=== PATIENT | male | born 1970 | race Caucasian/White ===

== ENCOUNTER 2017-01-29 21:38 | Emergency (ER) | payer SELFPAY ==
[2017-01-29] MEDS ORDERED: FOLIC ACID 1 MG TAB PO ONE (22:01)
[2017-01-29] MEDS ORDERED: NS 1,000 ML IV ONE ×2 (22:01→23:51)
[2017-01-29] MEDS ORDERED: THIAMINE HCL 500 MG in NS 100 ML IV ONE (22:01)
--- NOTE | 2017-01-29 22:28 | EDPHY ---
H & P Stated Complaint: ETOH - "drank a lot of vodka" at [facility] Source: Patient Exam Limitations: No limitations - Personal History Current Tetanus/Diphtheria Vaccine: Unsure Current Tetanus Diphtheria and Acellular Pertussis (TDAP): Unsure - Medical/Surgical History Other PMH: unobtainable - Social History Smoking Status: Current every day smoker HPI/ROS: CHIEF COMPLAINT: [facility] hold, acute alcohol intoxication HISTORY OF PRESENT ILLNESS: Patient arrives by EMS due to [facility] hold from acute alcohol intoxication. Contacted by bystanders due to alcohol intoxication. [place] [employer] activated. They placed a hold on him due to intoxication the EMS was activated. Patient denies any complaints of any kind. He admits to drinking heavy amounts of alcohol, vodka. He will not provide any other descriptors. He denies any headache. He has no chest pain. He has no complaints other than wanting to be left alone. No other history obtainable as he is a poor historian. REVIEW OF SYSTEMS: Ten systems reviewed and are negative unless otherwise noted in the HPI PAST MEDICAL HISTORY: Unable to obtain as he refuses to provide the information SOCIAL HISTORY: Alcohol intake. Will not provide any further social history FAMILY HISTORY: Unable to obtain EXAMINATION General Appearance: Alert, no distress Head: normocephalic, atraumatic. no outward signs of trauma Eyes: Pupils equal and round, no conjunctival pallor or injection. EOMs intact ENT, Mouth: Mucous membranes moist Neck: Normal inspection, supple, non-tender Respiratory: mild rhonchi. No retractions or distress. Cardiovascular: Regular rate and rhythm. no murmur Gastrointestinal: Abdomen is soft and nontender Back: non-tender, no bony abnormalities Neurological: Alert to person and place. Will not answer my question regarding time. Strength is symmetric in both arms. Skin: Warm and dry, no rash. No petechiae or purpura Extremities: Nontender, no pedal edema Psychiatric: Mood and affect normal DIFFERENTIAL DIAGNOSES: Including but not limited to acute alcohol intoxication, chronic alcohol use, alcohol abuse, alcoholism, dehydration MDM: 10:00 p.m. Acute alcohol intoxication. The patient will not provide any complaints. He does appear to be intoxicated. He is on a hold. We will hydrate him and re- evaluate. Plan for transfer to the [facility] once he is ambulatory. His vital signs are stable. He is mildly tachycardic. He is not tachypneic. He is afebrile. No tremor or evidence of delirium tremens. 11:28 p.m. I have re-evaluated the patient. He continues to pull his pulse oximeter and oxygen cannula off. When he sleeps is oxygen does drop into the 86-88% range. When he wakes up it is well above 90%. Mildly tachycardic. Provide a 2nd L of IV fluid continue to monitor his pulse oximetry. 11:45 p.m. Attempted a breathalyzer test with the patient was not cooperating. There was a partial/passive test performed that revealed a blood alcohol of 348. Thus the patient will likely be in the emergency department all night until which time he is able to ambulate without difficulty. Will monitor him with pulse oximetry. 1:00 a.m. Patient remains somnolent but in no acute distress. At this time I will transition care of the patient over to Dr. Soliz. Please see his note for final disposition. SUPERVISION: Patient was evaluated in conjunction with the supervising physician. Please see their note for details. (Gama Mccann) 0325AM: Patient not up ambulatory no ataxia. Stable gait., cooperative. Agreeable discharge would like to go to the [facility]. (James Soliz) Constitutional: Initial Vital Signs Temperature (C) 36.3 C 01/29/17 21:46 Heart Rate 107 H 01/29/17 21:46 Respiratory Rate 20 01/29/17 21:46 Blood Pressure 129/93 H 01/29/17 21:46 O2 Sat (%) 91 L 01/29/17 21:46 O2 Delivery Mode B[place] O2 (L/minute) 5 Allergies/Adverse Reactions: Unable to Assess Allergy (Unverified 03/17/11 03:38) Home Medications: Medication Instructions Recorded Unable To Obtain 0 03/17/11 Departure - Departure Disposition: Home, Routine, Self-Care Clinical Impression: Acute alcohol intoxication Qualifiers: Complication of substance-induced condition: uncomplicated Qualified Code(s): F10.920 - Alcohol use, unspecified with intoxication, uncomplicated Condition: Good Instructions: Alcohol Intoxication (ED) Referrals: Patient,NotPresent [Primary Care Provider] - As per Instructions Mallory Hemphill MD [Medical Doctor] - As per Instructions [facility],. [Clinic] - As per Instructions
[2017-01-30] MEDS ORDERED: FOLIC ACID 1 MG TAB ONE (03:15)
[2017-01-30 03:39] VITALS: BP 117/88; PULSE 96; RESP 16; TEMP 97.5; O2SAT 95
== END 2017-01-30 03:50 | disposition home or self-care (01) ==
LOC: EDUNIT#
DX: F10.920 Alcohol use, unspecified with intoxication, uncomplicated (principal); F17.200 Nicotine dependence, unspecified, uncomplicated
CPT/HCPCS: 96365; J3411

== ENCOUNTER 2017-05-15 15:40 | Emergency (ER) | payer MEDICAID ==
--- NOTE | 2017-05-15 15:42 | EDPHY ---
H & P Time Seen by Provider: 05/15/17 15:41 HPI/ROS: CHIEF COMPLAINT: Altered mental status HISTORY OF PRESENT ILLNESS: Patient arrives wearing a name tag with his 1st name on it, he was at a alevism dinner for Thanksgiving and was brought by police and paramedics after acting altered. Pre-hospital glucose was 100. Per EMS he smelled like mouthwash, patient admits to alcohol ingestion today. REVIEW OF SYSTEMS: Denies any medical complaints. No chest pain or shortness of breath. No suicidal ideation or overdose. No history of trauma. A comprehensive 10 point review of systems is otherwise negative aside from elements mentioned in the history of present illness. PAST MEDICAL HISTORY: Seen 01/29/2017 in our ED for alcohol intoxication. Social history: Admits to alcohol General Appearance: Alert, slurred speech, does follow commands. Eyes: No scleral icterus. ENT, Mouth: Normal mucous membranes. Respiratory: Normal respiratory effort, breath sounds equal, lungs are clear to auscultation. Cardiovascular: Regular rate and rhythm. Gastrointestinal: Abdomen is soft and non tender. Neurological: Alert, slurred speech, follows commands. A bit tangential. Face symmetric, normal movement and sensation in all extremities. Skin: Warm and dry, no rashes. Musculoskeletal: No peripheral edema and no joint swelling. Psychiatric: Denies SI or overdose. Emergency Department course/MDM: Normal pre-hospital glucose. Presentation consistent with history. Plan for serial examinations 1809: Sleeping quietly, easily awakened, more alert and speech less slurred. 1930: Ambulatory to the bathroom, no medical complaints, speech is clear, clinically sober to be discharged to detox. Smoking Status: Current every day smoker Constitutional: Initial Vital Signs Temperature (C) 36.7 C 05/15/17 15:40 Heart Rate 111 H 05/15/17 15:40 Respiratory Rate 16 05/15/17 15:40 Blood Pressure 147/75 H 05/15/17 15:40 O2 Sat (%) 93 05/15/17 15:40 O2 Delivery Mode Room Air Allergies/Adverse Reactions: Unable to Assess Allergy (Unverified 03/17/11 03:38) Home Medications: Medication Instructions Recorded Unable To Obtain 0 03/17/11 Medical Decision Making Differential Diagnosis: Differential diagnosis considered for altered mental status including but not limited to hypoglycemia, infectious process, electrolyte abnormality, head injury and intoxicants. Departure - Departure Disposition: Home, Routine, Self-Care Clinical Impression: Alcoholic intoxication Qualifiers: Complication of substance-induced condition: uncomplicated Qualified Code(s): F10.920 - Alcohol use, unspecified with intoxication, uncomplicated Condition: Good Instructions: Alcohol Intoxication (ED) Referrals: [facility],. [Clinic] - As per Instructions
[2017-05-15 16:09] VITALS: TEMP 98.1
[2017-05-15] MEDS ORDERED: CHLORDIAZEPOXIDE 25MG PREPK#6 BTL TAKEHOME ONE (19:39)
[2017-05-15 19:40] VITALS: BP 127/71; PULSE 80; RESP 14; O2SAT 95
== END 2017-05-15 19:49 | disposition home or self-care (01) ==
LOC: EDUNIT#
DX: F10.920 Alcohol use, unspecified with intoxication, uncomplicated (principal); F17.200 Nicotine dependence, unspecified, uncomplicated

== ENCOUNTER 2017-05-31 18:21 | Emergency (ER) | payer MEDICAID ==
--- NOTE | 2017-05-31 18:29 | EDPHY ---
H & P - Medical/Surgical History Hx Asthma: No Hx Chronic Respiratory Disease: No Hx Diabetes: No Hx Cardiac Disease: No Hx Renal Disease: No Hx Cirrhosis: No Hx Alcoholism: Yes Hx HIV/AIDS: No Hx Splenectomy or Spleen Trauma: No Other PMH: unobtainable - Social History Smoking Status: Current every day smoker HPI/ROS: CHIEF COMPLAINT: Altered mental status, Agitation at the movies possible alcohol intoxication HISTORY OF PRESENT ILLNESS: 47-year-old male history of heavy alcohol use, homelessness, arrives by ambulance after he was at the movie theater watching Thor and was reported by moviegoers that during violent or dramatic movie scenes the patient would start punching the chair and screaming. He has no complaints of pain or discomfort. Last tetanus is unknown. He denies suicidal or homicidal ideation. PRIMARY CARE PROVIDER: REVIEW OF SYSTEMS: A ten point review of systems was performed and is negative with the exception of the items mentioned in the HPI PAST MEDICAL & SURGICAL HISTORY: History of heavy alcohol use SOCIAL HISTORY: Admits to positive alcohol use PHYSICAL EXAM (Prior to examination, patient consented to physical exam, hands were washed and my usual and customary physical exam procedures followed) 1) GENERAL: Well-developed, well-nourished, alert and oriented. Appears to be in no acute distress. 2) HEAD: Normocephalic, atraumatic 3) HEENT: Pupils equal, round, reactive to light bilaterally. Sclera anicteric. Nasopharynx, oropharynx, clear, no lesions. Ears bilaterally with normal tympanic membranes. 4) NECK: Full range of motion, no meningeal signs. 5) LUNGS: Clear auscultation bilaterally, no wheezes, no rhonchi, no retractions. 6) HEART: Regular rate and rhythm, no murmur, no heave, no gallop. 7) ABDOMEN: No guarding, no rebound, no focal tenderness, negative McBurney's, negative Lang's, negative Rovsing's, negative peritoneal sign, 8) MUSCULOSKELETAL: Moving all extremities, no focal areas of tenderness, no obvious trauma. No peripheral edema or discoloration. 9) BACK: No CVA tenderness, no midline vertebral tenderness, no fluctuance, no step-off, no obvious trauma, no visual or palpable abnormality. 10) SKIN: No rash, no petechiae. 11) Psychiatric: Patient is oriented X 3, there is no agitation. DIFFERENTIAL DIAGNOSIS: In no particular include but limited to hypoglycemia, polysubstance abuse, acute alcohol use (Patel Durand) Constitutional: Initial Vital Signs Temperature (C) 36.4 C 05/31/17 18:32 Heart Rate 101 H 05/31/17 18:32 Respiratory Rate 15 05/31/17 18:32 Blood Pressure 150/106 H 05/31/17 18:32 O2 Sat (%) 97 05/31/17 18:32 O2 Delivery Mode Room Air Allergies/Adverse Reactions: Unable to Assess Allergy (Verified 05/31/17 18:31) Home Medications: Medication Instructions Recorded Unable To Obtain 0 03/17/11 Medical Decision Making ED Course/Re-evaluation: 6:30 p.m.: Blood alcohol 376, glucose 123. Patient will be observed for a period of time prior to to [facility] He is noted to have abrasion to bilateral hands with no underlying osseous discomfort, no malrotation or shortening normal cascading digits. This time he is unable to ambulate without significant assistance. Will observe for period of time. 8:02 p.m.: Re-evaluation, somnolent 9:37 p.m.: Re-evaluation, sleeping, easily woken, he is answering questions more clearly, progressively more coherent while in the emergency department. I re-examined him at this time specifically examined as bilateral hands which have dried blood however no evidence of infection, no evidence of septic arthritis, no underlying osseous discomfort, no malrotation, no shortening. I do not think that imaging of the hands currently indicated. He would like to go to the [facility]. Doubt delirium tremens. Usual and customary discharge precautions and instructions provided. Care of patient under supervision of secondary supervising physician Dr Martinez . (Patel Durand Sandhya) I did not see this patient while he was in the emergency department. However his care was discussed with the PA while the patient was in the department. I agree with treatment plan and management. I am the secondary supervising physician (Pj Martinez) - Data Points Medications Given: Discontinued Medications Chlordiazepoxide (Librium 25 Mg Prepack#6) 1 btl TAKEHOME EDNOW ONE Stop: 05/31/17 21:38 Last Admin: 05/31/17 21:45 Dose: 1 btl Diphtheria/Tetanus/Acell Pertussis (Boostrix) 0.5 ml IM .ONCE ONE Stop: 05/31/17 19:30 Last Admin: 05/31/17 21:00 Dose: 0.5 ml Departure - Departure Disposition: Home, Routine, Self-Care Clinical Impression: Alcoholic intoxication Condition: Good Instructions: Chlordiazepoxide (By mouth), Alcohol Intoxication (ED) Referrals: [facility] 24 Hours [Outside] - As per Instructions
[2017-05-31 18:34] VITALS: TEMP 97.5
[2017-05-31] MEDS ORDERED: TDAP ADULT 0.5 ML INJ (BOOSTRIX) IM ONE (19:29)
[2017-05-31 21:04] VITALS: RESP 16
[2017-05-31] MEDS ORDERED: CHLORDIAZEPOXIDE 25MG PREPK#6 BTL TAKEHOME ONE (21:37)
[2017-05-31 21:51] VITALS: BP 124/86; PULSE 103; O2SAT 98
== END 2017-05-31 21:51 | disposition home or self-care (01) ==
LOC: EDUNIT#
DX: F10.129 Alcohol abuse with intoxication, unspecified (principal); F17.200 Nicotine dependence, unspecified, uncomplicated; Z23 Encounter for immunization

== ENCOUNTER 2017-07-29 13:39 | Emergency (ER) | payer MEDICAID ==
--- NOTE | 2017-07-29 13:47 | EDPHY ---
H & P Time Seen by Provider: 07/29/17 13:46 HPI/ROS: HPI: This is a 47-year-old male who presents with Chief Complaint: Alcohol intoxication Location: body Quality: Alcohol intoxication Duration: Today Signs and Symptoms: no fever, no nausea, no vomiting, no hematemesis, no blood in stool, no abdominal bloating, no diarrhea, no back pain, no urinary symptoms , no testicular/groin pain, no indigestion, no chest pain, no shortness of breath Timing: Acute on chronic Severity: Moderate Context: Patient presents via EMS with complaints of alcohol intoxication. Patient was found outside disturbing the peace. Patient reports that he drank a lot of alcohol today but will not quantify how much. Denies any other complaints. Reports that he drinks alcohol almost every day. Denies suicidal ideation/homicidal ideation/hallucinations. No history of alcohol withdrawal seizures. Patient refuses to give any more information. He is a poor historian. Modifying Factors: None Comment: ROS: Limited due to intoxication MEDICAL/SURGICAL/SOCIAL HISTORY: Medical history: Alcohol abuse Surgical history: Denies Social history: Homeless CONSTITUTIONAL: Clearly intoxicated, sleeping soundly, awakens to painful stimuli but quickly falls asleep, awake and alert, no obvious distress HEENT: Atraumatic and normocephalic, PERRL, EOMI. Tympanic membranes clear. Oropharynx clear, no exudate and moist pink mucosa. Airway patent. No lymphadenopathy. No meningismus. Cardiovascular: Normal S1/S2, regular rate, regular rhythm, without murmur rub or gallop. PULMONARY/CHEST: Symmetrical and nontender. Clear to auscultation bilaterally. Good air movement. No accessory muscle usage. ABDOMEN: Soft, nondistended, nontender, no rebound, no guarding, no peritoneal signs, no masses or organomegaly. No CVAT. EXTREMITIES: 2/2 pulses, strength 5/5, no deformities, no clubbing, no cyanosis or edema. Passive movement of all 4 extremities. NEUROLOGICAL: no focal neuro deficits. Intoxicated. Speech mumbled. GCS 13. SKIN: Warm and dry, no erythema. no rash. Good capillary refill. Source: Patient, EMS, Old records Exam Limitations: No limitations - Medical/Surgical History Hx Asthma: No Hx Chronic Respiratory Disease: No Hx Diabetes: No Hx Cardiac Disease: No Hx Renal Disease: No Hx Cirrhosis: No Hx Alcoholism: Yes Hx HIV/AIDS: No Hx Splenectomy or Spleen Trauma: No Other PMH: unobtainable - Social History Smoking Status: Current every day smoker Constitutional: Initial Vital Signs Temperature (C) 36.6 C 07/29/17 14:00 Heart Rate 84 07/29/17 14:00 Respiratory Rate 18 07/29/17 14:00 Blood Pressure 134/84 H 07/29/17 14:00 O2 Sat (%) 92 07/29/17 14:00 O2 Delivery Mode Room Air Allergies/Adverse Reactions: No Known Allergies Allergy (Unverified 07/29/17 13:59) Home Medications: Medication Instructions Recorded NK [No Known Home Meds] 07/29/17 Medical Decision Making ED Course/Re-evaluation: 1400: FSBS 95. Patient is too intoxicated to obtain Breathalyzer. Maintaining airway. Will allow patient to sleep and become more sober. Do not believe that IV or laboratory studies are indicated at this time. 1625: Reassessed patient; sleeping soundly. Will wake up with painful stimuli. He is unsure of how he arrived in the emergency room. Admits to drinking alcohol today but unsure how much. Currently has no complaints. Does not meet M1 or Detainer criteria 1730: Patient walked out of his room without ataxia or assistance. Discharge to [facility] with Librium prepack. This patient was seen under the supervision of my secondary supervising physician. I evaluated care for this patient independently. Differential Diagnosis: Altered mental status including but not limited to hypoglycemia, infectious process, electrolyte abnormality, head injury and intoxicants. - Data Points Laboratory Results: 07/29/17 13:57 POC Glucose 95 mg/dL mg/dL (70-100) Point of Care Test Results: 07/29/17 13:57 POC Glucose 95 Departure - Departure Disposition: Home, Routine, Self-Care Clinical Impression: Alcohol intoxication Qualifiers: Complication of substance-induced condition: uncomplicated Qualified Code(s): F10.920 - Alcohol use, unspecified with intoxication, uncomplicated Condition: Fair Instructions: Abuse of Alcohol (ED) Additional Instructions: Please stop drinking alcohol excessively. Referrals: [facility] Detox 24 Hours [Outside] - As per Instructions
[2017-07-29 14:03] VITALS: BP 134/84; PULSE 84; RESP 18; TEMP 97.9; O2SAT 92
[2017-07-29] MEDS ORDERED: CHLORDIAZEPOXIDE 25MG PREPK#6 BTL TAKEHOME ONE (17:29)
== END 2017-07-29 17:46 | disposition home or self-care (01) ==
LOC: EDUNIT#
DX: F10.920 Alcohol use, unspecified with intoxication, uncomplicated (principal); F17.200 Nicotine dependence, unspecified, uncomplicated

== ENCOUNTER 2017-08-16 18:34 | Emergency (ER) | payer MEDICAID ==
--- NOTE | 2017-08-16 18:39 | EDPHY ---
H & P Smoking Status: Current every day smoker Time Seen by Provider: 08/16/17 18:35 HPI/ROS: CHIEF COMPLAINT: Altered mental status HISTORY OF PRESENT ILLNESS: History primarily from EMS, they were called the library as the patient was acting abnormally and then briefly was unresponsive. No seizure activity. Patient is having trouble answering questions. Further history and review of systems unable as the patient his altered. PAST MEDICAL HISTORY: From previous visits, alcohol intoxication Social history: Admits to alcohol General Appearance: Alert but slurred speech, intermittently cooperative Eyes: No scleral icterus. ENT, Mouth: Normal mucous membranes. No tongue laceration or abrasion. Respiratory: Normal respiratory effort, breath sounds equal, lungs are clear to auscultation. Cardiovascular: Regular rate and rhythm. Gastrointestinal: Abdomen is soft and non tender. Neurological: Moves all 4 extremities and intermittently follows commands. Skin: Warm and dry, no rashes. No external evidence of head trauma. Musculoskeletal: No spinal or extremity deformity or tenderness. Psychiatric: Unable because altered. Emergency Department course/MDM: CBC chemistry and ethanol, serial exams. 1950: ethanol 495; plan for serial exam, eventually to detox. 2032: Signed out to Kaveh (Ilir Quijano) Constitutional: Initial Vital Signs Temperature (C) 36.8 C 08/16/17 18:39 Heart Rate 106 H 08/16/17 18:39 Respiratory Rate 16 08/16/17 18:39 Blood Pressure 131/90 H 08/16/17 18:39 O2 Sat (%) 99 08/16/17 18:39 O2 Delivery Mode Room Air O2 (L/minute) 2 Allergies/Adverse Reactions: No Known Allergies Allergy (Unverified 07/29/17 13:59) Home Medications: Medication Instructions Recorded NK [No Known Home Meds] 07/29/17 Medical Decision Making Differential Diagnosis: Differential diagnosis considered for altered mental status including but not limited to hypoglycemia, infectious process, electrolyte abnormality, head injury and intoxicants. (Ilir Quijano) Patient sobered and felt well. He was able to walk within the emergency department and will be discharged home. (Laurence Linn) - Data Points Laboratory Results: Laboratory Results 08/16/17 18:21 08/16/17 18:21 08/16/17 18:21 Sodium 154 mEq/L H mEq/L (135-145) Potassium 4.5 mEq/L mEq/L (3.5-5.2) Chloride 105 mEq/L mEq/L (97-110) Carbon Dioxide 29 mEq/l mEq/l (22-31) Anion Gap 20 mEq/L H mEq/L (8-16) BUN 10 mg/dL mg/dL (7-23) Creatinine 1.0 mg/dL mg/dL (0.7-1.3) Estimated GFR > 60 Glucose 109 mg/dL H mg/dL (70-100) Calcium 10.4 mg/dL mg/dL (8.5-10.4) Ethyl Alcohol 495 mg/dL H* mg/dL (0-10) Departure - Departure Disposition: Home, Routine, Self-Care Clinical Impression: Alcoholic intoxication Qualifiers: Complication of substance-induced condition: uncomplicated Qualified Code(s): F10.920 - Alcohol use, unspecified with intoxication, uncomplicated Condition: Good Instructions: Alcohol Intoxication (ED) Referrals: [facility],. [Clinic] - As per Instructions
[2017-08-16 18:53] LABS: PLATELET COUNT 547 10^3/uL (150-400)
[2017-08-17 03:36] VITALS: BP 112/80; PULSE 80; RESP 16; TEMP 98.1; O2SAT 93
== END 2017-08-17 03:37 | disposition home or self-care (01) ==
LOC: EDUNIT#
DX: F10.920 Alcohol use, unspecified with intoxication, uncomplicated (principal); F17.200 Nicotine dependence, unspecified, uncomplicated
CPT/HCPCS: G0480

== ENCOUNTER 2018-08-08 16:40 | Emergency (ER) | payer MEDICAID ==
--- NOTE | 2018-08-08 16:43 | EDPHY ---
HPI/HX/ROS/PE/MDM Narrative: CHIEF COMPLAINT: Fall, AMS HPI: The patient is a 48 y/o male with a history of prior ED visits for alcohol intoxication who arrives via EMS after he fell from a chair at [facility]. Per EMS , bystanders denied seizure activity or loss of consciousness. He has mostly been following commands for them and has a normal prehospital BGL. He admits to alcohol use today, but generally has not been able to answer most questions here and further history is not obtainable from him at this time. REVIEW OF SYSTEMS: Unobtainable due to AMS. PMH: Alcohol use leading to ED visits SOCIAL HISTORY: Alcohol use. Smoker. Prior medical records reviewed including ED visit 08/16/17 for alcohol intoxication. PHYSICAL EXAM: General:Patient is alert, in no acute distress. Smells of alcohol. ENT:Eyes are normal to inspection. ENT inspection normal. Neck: Normal inspection. Full range of motion. Respiratory:No respiratory distress. Breath sounds normal bilaterally. Cardiovascular: Tachycardic regular rate and rhythm. Strong peripheral pulses. Normal cap refill. Abdomen:The abdomen is nontender to palpation. There are no peritoneal signs. Back: Normal to inspection. No tenderness to palpation. Skin: Normal color. No rash. Warm and dry. Extremities: Normal appearance. Full range of motion. Neuro: Oriented x2. Moving all extremities. Face symmetric. Following some commands. ED Course: This is a 48 y/o male with a history of prior ED visits for alcohol intoxication who presents with altered mentation after a fall off a chair. He smells of alcohol and has difficulty answering questions on exam. No focal neuro deficits or obvious trauma on exam. Suspect alcohol intoxication. Plan for IV, labs, and serial reassessment. EtOH 399. Labs otherwise unremarkable. 2049: Patient is now walking through the department without issue. He will be discharged to the [facility] in stable condition for detox. Standard care and follow up instructions provided. Return precautions discussed. - Data Points Laboratory Results: Laboratory Results 08/08/18 17:00 08/08/18 17:00 08/08/18 08/08/18 17: 17: WBC 6.65 10^3/uL 10^3/uL (3.80-9.50) RBC 4.39 10^6/uL L 10^6/uL (4.40-6.38) Hgb 14.4 g/dL g/dL (13.7-17.5) Hct 40.6 % % (40.0-51.0) MCV 92.5 fL fL (81.5-99.8) MCH 32.8 pg pg (27.9-34.1) MCHC 35.5 g/dL g/dL (32.4-36.7) RDW 11.3 % L % (11.5-15.2) Plt Count 328 10^3/uL 10^3/uL (150-400) MPV 9.1 fL fL (8.7-11.7) Neut % (Auto) 48.3 % % (39.3-74.2) Lymph % (Auto) 42.9 % % (15.0-45.0) [place] % (Auto) 6.6 % % (4.5-13.0) Eos % (Auto) 0.9 % % (0.6-7.6) Baso % (Auto) 1.1 % % (0.3-1.7) Nucleat RBC Rel Count 0.0 % % (0.0-0.2) Absolute Neuts (auto) 3.22 10^3/uL 10^3/uL (1.70-6.50) Absolute Lymphs (auto) 2.85 10^3/uL 10^3/uL (1.00-3.00) Absolute Monos (auto) 0.44 10^3/uL 10^3/uL (0.30-0.80) Absolute Eos (auto) 0.06 10^3/uL 10^3/uL (0.03-0.40) Absolute Basos (auto) 0.07 10^3/uL 10^3/uL (0.02-0.10) Absolute Nucleated RBC 0.00 10^3/uL 10^3/uL (0-0.01) Immature Gran % 0.2 % % (0.0-1.1) Immature Gran # 0.01 10^3/uL 10^3/uL (0.00-0.10) Sodium 146 mEq/L H mEq/L (135-145) Potassium 4.3 mEq/L mEq/L (3.5-5.2) Chloride 107 mEq/L mEq/L (97-110) Carbon Dioxide 25 mEq/l mEq/l (22-31) Anion Gap 14 mEq/L mEq/L (6-14) BUN 15 mg/dL mg/dL (7-23) Creatinine 1.1 mg/dL mg/dL (0.7-1.3) Estimated GFR > 60 Glucose 110 mg/dL H mg/dL (70-100) Calcium 9.5 mg/dL mg/dL (8.5-10.4) Ethyl Alcohol 399 mg/dL H mg/dL (0-10) General Time Seen by Provider: 08/08/18 16:41 Initial Vital Signs: Initial Vital Signs Temperature (C) 37.1 C 08/08/18 16:45 Heart Rate 114 H 08/08/18 16:45 Respiratory Rate 18 08/08/18 16:45 Blood Pressure 106/83 H 08/08/18 16:45 O2 Sat (%) 92 08/08/18 16:45 O2 Delivery Mode Room Air O2 (L/minute) 2 Allergies/Adverse Reactions: No Known Allergies Allergy (Unverified 07/29/17 13:59) Home Medications: Medication Instructions Recorded NK [No Known Home Meds] 07/29/17 Departure - Departure Disposition: Home, Routine, Self-Care Clinical Impression: Alcoholic intoxication Qualifiers: Complication of substance-induced condition: uncomplicated Qualified Code(s): F10.920 - Alcohol use, unspecified with intoxication, uncomplicated Condition: Good Instructions: Abuse of Alcohol (ED) Additional Instructions: Go directly to the [facility] for detox. Follow up with your primary care provider this week. Return for worsening of condition. Referrals: [facility] Detox 24 Hours [Outside] - As per Instructions Report Scribed for: Nasir Siddiqui Report Scribed by: Mary Esposito Date of Report: 08/08/18 Time of Report: 17:20 Physician Review and Approval Statement: Portions of this note were transcribed by an ED scribe. I personally performed the history, physical exam, and medical decision making; and confirm the accuracy of the information in the transcribed note.
[2018-08-08 17:08] LABS: PLATELET COUNT 328 10^3/uL (150-400)
[2018-08-08] MEDS ORDERED: CHLORDIAZEPOXIDE 25MG PREPK#6 BTL TAKEHOME ONE (21:01)
[2018-08-08 21:19] VITALS: BP 134/80
== END 2018-08-08 21:17 | disposition home or self-care (01) ==
LOC: EDUNIT#
DX: F10.920 Alcohol use, unspecified with intoxication, uncomplicated (principal)
CPT/HCPCS: G0480